=== PATIENT | female | born 1960 | race African-American/Black ===

== ENCOUNTER 2016-12-03 21:38 | Emergency (ER) | payer OTHER ==
[2016-12-03] MEDS ORDERED: Famotidine In NaCl 20 mg/50 ml Premix Bag ONE ×2 (23:04→23:16)
[2016-12-03] MEDS ORDERED: Lisinopril 5 MG TAB ONE (23:04)
[2016-12-03] MEDS ORDERED: Ondansetron HCl/PF 4 MG/2 ML Vial ONE (23:04)
[2016-12-03 23:33] LABS: Bilirubin Negative (Negative); Blood, Urine Negative (Negative); Clarity Slightly Cloudy (Clear); Glucose, Urine (Dipstick) Negative (Negative); Leukocyte Negative (Negative); Nitrite Negative (Negative); Protein, Urine (Dipstick) Negative (Neg-Trace); Urobilinogen 0.2 mg/dL (0.2-1.0)
[2016-12-03 23:35] LABS: Specific Gravity, Urine 1.005 (1.002-1.036)
[2016-12-03 23:47] LABS: #Basophils 0.1 thou/uL (0.0-0.2); #Eosinphils 0.2 thou/uL (0.0-0.7); #Lymphocytes 2.8 thou/uL (1.20-3.40); #Monocytes 0.8 thou/uL (0.11-0.59); #Neutrophils 4.9 thou/uL (1.40-6.50); %Basophils 0.8 % (0.0-1.0); %Eosinophils 1.8 % (0.0-10.0); %Lymphocytes 32.2 % (21.0-51.0); %Monocytes 8.8 % (0.0-10.0); %Neutrophils 56.4 % (42.0-75.0); Hemoglobin 11.8 g/dL (12.0-16.0); Mean Corpuscular Hemoglobin 28.9 pg (27.0-31.0); Mean Corpuscular Volume 93.1 fl (81.0-99.0); Mean Platelet Volume 7.1 fL (7.4-10.4); Platelet Count 328 thou/uL (130-400); RBC Distribution Width 13.2 % (11.5-14.5); White Blood Cell (WBC) Count 8.7 thou/uL (4.8-10.8)
[2016-12-04 00:05] LABS: ALT (SGPT) 44 U/L (0-55); AST (SGOT) 63 U/L (5-34); Albumin 3.7 g/dL (3.5-5.0); Alkaline Phosphatase 124 U/L (40-150); Anion Gap 16 mmol/L (10-20); BUN (Urea Nitrogen) 8 mg/dL (9.8-20.1); Bilirubin, Total 0.6 mg/dL (0.2-1.2); Calc. Creatinine Clearance 0 mL/min (70-130); Calcium 9.4 mg/dL (7.8-10.44); Carbon Dioxide 22 mmol/L (22-29); Chloride 105 mmol/L (98-107); Estimated GFR-MDRD Greater than 90; Globulin 4.3 g/dL (2.4-3.5); Glucose 118 mg/dL (70-105); Lipase 91 U/L (8-78); Potassium 4.2 mmol/L (3.5-5.1); Sodium 139 mmol/L (136-145)
== END 2016-12-04 00:15 | disposition home or self-care (01) ==
LOC: BURERS 21:38
DX: K80.50 Calculus of bile duct without cholangitis or cholecystitis without obstruction (principal); I10 Essential (primary) hypertension; Z79.899 Other long term (current) drug therapy
CPT/HCPCS: 36415; 80053; 81003; 83690; 85025; 94760; 96365; 96375; J2405

== ENCOUNTER 2019-02-14 15:54 | Emergency (ER) | payer MEDICARE, MEDICAID | END 2019-02-14 16:35 | disposition home or self-care (01) | LOC: BURERS 15:54 | DX: M79.661 Pain in right lower leg (principal); M79.662 Pain in left lower leg; I10 Essential (primary) hypertension; Z79.899 Other long term (current) drug therapy | CPT/HCPCS: 99281 ==

== ENCOUNTER 2019-05-21 18:28 | Emergency (ER) | payer MEDICARE, MEDICAID ==
[2019-05-21] MEDS ORDERED: Hyoscyamine Sulfate SL 0.125 mg Tablet ONE (18:47)
[2019-05-21] MEDS ORDERED: Ondansetron ODT 4 MG TAB ONE (18:47)
== END 2019-05-21 18:51 | disposition home or self-care (01) ==
LOC: BURERS 18:28
DX: R11.2 Nausea with vomiting, unspecified (principal); R19.7 Diarrhea, unspecified; I10 Essential (primary) hypertension; Z79.899 Other long term (current) drug therapy
CPT/HCPCS: 99283; Q0162

== ENCOUNTER 2020-05-01 18:02 | Emergency (ER) | payer MEDICARE, MEDICAID ==
[~2020-05-01 18:02] MED LIST: Iopamidol 370 76% 100 ML VIAL ONE
[2020-05-01] MEDS ORDERED: HYDROcodone/Acetaminophen 5/325 mg Tablet ONE (18:37)
[2020-05-01 18:54] LABS: Hemoglobin 11.8 g/dL (12.0-16.0); Mean Corpuscular HGB CONC 29.1 g/dL (32.0-36.0); Mean Corpuscular Hemoglobin 29.5 pg (27.0-31.0); Mean Platelet Volume 6.7 fL (7.4-10.4); Platelet Count 315 thou/uL (130-400); RBC Distribution Width 13.9 % (11.5-14.5); White Blood Cell (WBC) Count 7.3 thou/uL (4.8-10.8)
[2020-05-01 19:09] LABS: ALT (SGPT) 38 U/L (8-55); AST (SGOT) 80 U/L (5-34); Alkaline Phosphatase 129 U/L (40-110); Anion Gap 18 mmol/L (10-20); BUN (Urea Nitrogen) 8 mg/dL (9.8-20.1); Bilirubin, Total 0.3 mg/dL (0.2-1.2); Calc. Creatinine Clearance 0 mL/min (70-130); Calcium 9.2 mg/dL (7.8-10.44); Carbon Dioxide 26 mmol/L (22-29); Chloride 104 mmol/L (98-107); Estimated GFR-MDRD Greater than 90; Globulin 3.8 g/dL (2.4-3.5); Glucose 129 mg/dL (70-105); Lipase 41 U/L (8-78); Potassium 3.8 mmol/L (3.5-5.1); Protein, Total 7.8 g/dL (6.0-8.3); Sodium 144 mmol/L (136-145)
[2020-05-01 19:13] LABS: #Basophils 0.1 thou/uL (0.0-0.2); #Eosinphils 0.1 thou/uL (0.0-0.7); #Lymphocytes 2.9 thou/uL (1.20-3.40); #Monocytes 0.8 thou/uL (0.11-0.59); #Neutrophils 3.4 thou/uL (1.40-6.50); %Basophils 1.1 % (0.0-1.0); %Eosinophils 1.6 % (0.0-10.0); %Lymphocytes 40.1 % (21.0-51.0); %Monocytes 10.3 % (0.0-10.0); %Neutrophils 46.8 % (42.0-75.0); Hypochromia SLIGHT = 6-15 cells (100X) (0-5/hpf); MDiff Complete? YES; Macrocytosis SLIGHT = 6-15 cells (100X) (0-5/hpf)
--- NOTE | 2020-05-01 19:42 | CT ---
CT abdomen and pelvis with IV contrast CT lumbar spine noncontrast HISTORY: Fall. Injury. COMPARISON: 06/18/2015. FINDINGS: Old right lower rib fractures are partially visualized. No acute fracture evident. Lung bas es are clear. Calcification throughout the arterial structures. Small metallic foreign bodies embedded within the subcutaneous tissues of the left abdomen and left p osterior abdomen/pelvis are similar in appearance to the prior study. Tiny cyst within the inferior aspect of the right liver lobe is stable. Hyperdense material is noted within the dependent portion of the gallbladder lumen. No free air or free fluid. Mild calcified fibroid involvement of the uterus. Vertebral body heights of lumbar spine are maintained. Scattered osteophytosis. Disc space narrowing and minimal degenerative spondylolisthesis at the L4-5 level. No acute fracture or dislocation are apparent. IMPRESSION : No acute injury is demonstrated. Cholelithiasis. Chronic-type findings, as detailed above, are stable
== END 2020-05-01 20:10 | disposition home or self-care (01) ==
LOC: BURERS 18:02
DX: M54.5 Low back pain (principal); I10 Essential (primary) hypertension; Z79.899 Other long term (current) drug therapy; W19.XXXA Unspecified fall, initial encounter
CPT/HCPCS: 74177; 80053; 83605; 83690; 85025; Q9967

== ENCOUNTER 2020-07-22 19:12 | Emergency (ER) | payer MEDICARE, OTHER ==
--- NOTE | 2020-07-22 20:21 | RAD ---
RIGHT FOOT THREE VIEWS: Date: 07-22-2020 FINDINGS: Some swelling is seen on the dorsum of the forefoot. No underlying fractures were appreciated. The rigo ints were unremarkable. A tiny calcaneal spur is forming. A tiny bony density just medial to the firs t metatarsal head may be a prior foreign body or old avulsion. IMPRESSION: No acute bony findings. POS: HOME
== END 2020-07-22 19:55 | disposition home or self-care (01) ==
LOC: BURERS 19:12
DX: S90.31XA Contusion of right foot, initial encounter (principal); W20.8XXA Other cause of strike by thrown, projected or falling object, initial encounter; Z79.899 Other long term (current) drug therapy

== ENCOUNTER 2021-06-11 09:02 | Emergency (ER) | payer MEDICARE, MEDICAID | END 2021-06-11 09:32 | disposition home or self-care (01) | LOC: BURERS 09:02 | DX: H00.012 Hordeolum externum right lower eyelid (principal); I10 Essential (primary) hypertension | CPT/HCPCS: 99282 ==

== ENCOUNTER 2021-08-29 09:05 | Emergency (ER) | payer MEDICARE, OTHER ==
[2021-08-29] MEDS ORDERED: Iopamidol 370 76% 100 ML VIAL FS ONE (09:06)
[2021-08-29] MEDS ORDERED: Mag-Al Plus 1200 MG/1200 MG/120 MG/30 ML UDCUP ONE (09:36)
[2021-08-29] MEDS ORDERED: Lidocaine Viscous Sol 2% 15 ml UD Cup ONE (09:36)
[2021-08-29] MEDS ORDERED: Ondansetron PF 4 MG/2 ML Vial ONE (09:37)
[2021-08-29 09:58] LABS: #Basophils 0.1 thou/uL (0.0-0.2); #Eosinphils 0.1 thou/uL (0.0-0.7); #Lymphocytes 2.5 thou/uL (1.20-3.40); #Monocytes 0.6 thou/uL (0.11-0.59); #Neutrophils 5.2 thou/uL (1.40-6.50); %Basophils 1.3 % (0.0-1.0); %Eosinophils 1.6 % (0.0-10.0); %Lymphocytes 29.1 % (21.0-51.0); %Monocytes 6.6 % (0.0-10.0); %Neutrophils 61.4 % (42.0-75.0); Hemoglobin 12.4 g/dL (12.0-16.0); Mean Corpuscular HGB CONC 30.8 g/dL (32.0-36.0); Mean Corpuscular Hemoglobin 26.5 pg (27.0-31.0); Mean Corpuscular Volume 86.1 fL (78.0-98.0); Mean Platelet Volume 7.3 fL (7.4-10.4); Platelet Count 492 thou/uL (130-400); RBC Distribution Width 13.5 % (11.5-14.5); Red Blood Cell (RBC) Count 4.69 mill/uL (4.20-5.40); White Blood Cell (WBC) Count 8.5 thou/uL (4.8-10.8)
[2021-08-29 10:00] LABS: ALT (SGPT) 24 U/L (8-55); AST (SGOT) 46 U/L (5-34); Albumin 4.2 g/dL (3.4-4.8); Alkaline Phosphatase 152 U/L (40-110); Anion Gap 15 mmol/L (10-20); BUN (Urea Nitrogen) 21 mg/dL (9.8-20.1); Bilirubin, Total 0.6 mg/dL (0.2-1.2); Calc. Creatinine Clearance 0 mL/min (70-130); Calcium 10.5 mg/dL (7.8-10.44); Carbon Dioxide 26 mmol/L (23-31); Chloride 105 mmol/L (98-107); Globulin 4.1 g/dL (2.4-3.5); Glucose 130 mg/dL (80-115); Lipase 34 U/L (8-78); Potassium 4.7 mmol/L (3.5-5.1); Protein, Total 8.3 g/dL (5.8-8.1); Sodium 141 mmol/L (136-145)
[2021-08-29 11:54] LABS: Bilirubin Negative (Negative); Blood, Urine Negative (Negative); Clarity Clear (Clear); Glucose, Urine (Dipstick) Negative (Negative); Ketone, Urine Negative (Negative); Leukocyte Negative (Negative); Nitrite Negative (Negative); Protein, Urine (Dipstick) Negative (Neg-Trace); pH, Urine 7.5 (5.0-9.0)
== END 2021-08-29 12:18 | disposition home or self-care (01) ==
LOC: BURERS 09:05
DX: K80.50 Calculus of bile duct without cholangitis or cholecystitis without obstruction (principal); I10 Essential (primary) hypertension
CPT/HCPCS: 74177; 80053; 81003; 83605; 83690; 85025; 93005; 96374; J2405; Q9967

== ENCOUNTER 2022-07-14 10:20 | Emergency (ER) | payer OTHER ==
[2022-07-14] MEDS ORDERED: HYDROcodone/Acetaminophen 5/325 mg Tablet ONE (11:44)
== END 2022-07-14 12:04 | disposition home or self-care (01) ==
LOC: BURERS 10:20
DX: S16.1XXA Strain of muscle, fascia and tendon at neck level, initial encounter (principal); S39.012A Strain of muscle, fascia and tendon of lower back, initial encounter; S76.011A Strain of muscle, fascia and tendon of right hip, initial encounter; I10 Essential (primary) hypertension; V89.2XXA Person injured in unspecified motor-vehicle accident, traffic, initial encounter; Z79.899 Other long term (current) drug therapy

== ENCOUNTER 2022-07-18 14:51 | Emergency (ER) | payer OTHER, MEDICARE, MEDICAID ==
[2022-07-18] MEDS ORDERED: Ibuprofen 200 MG TAB ONE (15:31)
== END 2022-07-18 16:59 | disposition home or self-care (01) ==
LOC: BURERS 14:51
DX: S39.012A Strain of muscle, fascia and tendon of lower back, initial encounter (principal); S76.011A Strain of muscle, fascia and tendon of right hip, initial encounter; I10 Essential (primary) hypertension; V89.2XXA Person injured in unspecified motor-vehicle accident, traffic, initial encounter
CPT/HCPCS: 71046; 72040

== ENCOUNTER 2023-06-03 08:35 | Emergency (ER) | payer OTHER ==
[2023-06-03] MEDS ORDERED: Diazepam 5 MG TAB ONE (09:22)
== END 2023-06-03 09:33 | disposition home or self-care (01) ==
LOC: BURERS 08:35
DX: S16.1XXA Strain of muscle, fascia and tendon at neck level, initial encounter (principal); I10 Essential (primary) hypertension; V89.2XXA Person injured in unspecified motor-vehicle accident, traffic, initial encounter; Z79.899 Other long term (current) drug therapy
CPT/HCPCS: 99283